=== PATIENT | female | born 1930 | race Caucasian/White ===

== ENCOUNTER → 2016-07-22 | Outpatient (CLI) | payer MEDICARE, OTHER ==
--- NOTE | 2016-07-22 11:38 | Diagnostic Imaging Report ---
US LEFT UPPER EXT NONVASCULAR Technique: Grayscale and color Doppler targeted imaging of the medial aspect of the left elbow was performed. Indication: Swelling of the medial aspect of the left elbow. Comparison: None available. Findings: Imaging of the medial aspect of the left elbow was performed in the area of reported swelling. There is no mass, fluid or other findings to suggest hematoma. No evidence of subcutaneous edema. Impression: 1. No abnormality to correspond to patient's reported swelling of the medial left elbow. Concern remains for potential soft tissue abnormality, MRI of the left elbow is suggested. Dictated by: Dictated on workstation # [id number]
== END ==
LOC: RAD 09:55
PROVIDERS: ATTEND Family Medicine
DX: R22.32 Localized swelling, mass and lump, left upper limb (principal)
CPT/HCPCS: 76881